=== PATIENT | male | born 1935 | race Caucasian/White ===

== ENCOUNTER 2017-10-22 16:26 | Emergency (ER) | payer OTHER, MEDICARE ==
[~2017-10-22] VITALS: Ht 172.7 cm; Wt 72.6 kg
[~2017-10-22 16:26] MED LIST: FELO2.5T PO; FISH1000 PO; GABA300 PO; GLUC500C56 PO; HYDR-2768 PO; PRED10 PO; QUEN12.5 PO; TIMO0.5S6 OU; ZOCO80TA PO; cinnamon PO; hydrocodone PO; stool softner PO
[2017-10-22 16:30] VITALS: BP 194/85; PULSE 73; RESP 16; TEMP 98; O2SAT 99
[2017-10-22 16:46] VITALS: BP 190/88; PULSE 65; RESP 18; O2SAT 98
--- NOTE | 2017-10-22 16:47 | PD ---
HPI Chief Complaint: Edema Time Seen by Provider: 16:34 Travel History International Travel<30 days: No Contact w/Intl Traveler<30days: No Traveled to known affect area: No History of Present Illness HPI PATIENT STATES THAT AFTER WORKING AROUND THE [employer], ONCE HE GOT OFF THE BOAT AND TRIED TO GET INTO HIS CAR, HE NOTICED A LUMP ON HIS LEFT CALF AREA. PATIENT IS ON PLAVIX BUT IS HERE BECAUSE HE'S CONCERNED IT MIGHT BE A BLOOD CLOT. PCP SAUL BRADFORD ALL:NKDA PMHX:HIGH CHOL, HTN, CVA, PFSH Past Medical History Hx Anticoagulant Therapy: Yes (PLAVIX) Blood Disorders: No Cancer: No Cardiovascular Problems: Yes High Cholesterol: Yes Cerebrovascular Accident: Yes Endocrine: No Glaucoma: Yes (melly) Genitourinary: No Hypertension: Yes Immune Disorder: No Musculoskeletal: Yes Neurologic: No Psychiatric: No Reproductive: No Respiratory: No Past Surgical History Abdominal Surgery: Yes (spleenectomy) Body Medical Devices: titanium plate in the neck Eye Surgery: Yes (melly cataract removal) Social History Alcohol Use: Yes (2 glasses of wine per day) Tobacco Use: No Substance Use: No Allergies-Medications (Allergen,Severity, Reaction): Coded Allergies: No Known Allergies (Unverified Adverse Reaction, Unknown, 10/22/17) Reported Meds & Prescriptions Reported Meds & Active Scripts Active Reported Vitamin D3 (Cholecalciferol) 5,000 Unit Cap 5,000 Units PO DAILY Vitamin E (Vitamin E (Dl,Tocopheryl Acet)) 100 Unit Capsule 1 Tab PO DAILY Plavix (Clopidogrel Bisulfate) 75 Mg Tab 75 Mg PO DAILY Tamsulosin (Tamsulosin HCl) 0.4 Mg Cap 0.4 Mg PO HS Pravastatin 80 Mg Tab 80 Mg PO DAILY Amlodipine (Amlodipine Besylate) 2.5 Mg Tab 2.5 Mg PO DAILY Combigan Opth Drops (Brimonidine-Timolol Opth Drops) 0.2-0.5% Soln 1 Drop EACH EYE Q12HR Latanoprost Opth Drops (Latanoprost) 0.005% Drops 1 Drop EACH EYE HS Refrigerate until opened. Review of Systems Except as stated in HPI: all other systems reviewed are Neg General / Constitutional: No: Fever Eyes: No: Visual changes HENT: No: Headaches Cardiovascular: No: Chest Pain or Discomfort Respiratory: No: Shortness of Breath Gastrointestinal: No: Abdominal Pain Genitourinary: No: Dysuria Musculoskeletal: No: Pain Skin: Positive Lumps Neurologic: No: Weakness Psychiatric: No: Depression Endocrine: No: Polydipsia Hematologic/Lymphatic: No: Easy Bruising Physical Exam Narrative GENERAL: SKIN: Warm and dry. HEAD: Atraumatic. Normocephalic. EYES: Pupils equal and round. No scleral icterus. No injection or drainage. ENT: No nasal bleeding or discharge. Mucous membranes pink and moist. NECK: Trachea midline. No JVD. CARDIOVASCULAR: Regular rate and rhythm. RESPIRATORY: No accessory muscle use. Clear to auscultation. Breath sounds equal bilaterally. GASTROINTESTINAL: Abdomen soft, non-tender, nondistended. Hepatic and splenic margins not palpable. MUSCULOSKELETAL: Extremities without clubbing, cyanosis, or edema. No obvious deformities. LEFT CALF PROXIMALLY ALONG MEDIAL HEAD OF GASTROCNEMIUS HE FOUND A LUMP, ABOUT 6CM, FIRM, WITH ECHYMOTIC SKIN CHANGES OVER IT, NO WARMTH/ERYTHEMA/ CELLULITIS NEUROLOGICAL: Awake and alert. No obvious cranial nerve deficits. Motor grossly within normal limits. Five out of 5 muscle strength in the arms and legs. Normal speech. PSYCHIATRIC: Appropriate mood and affect; insight and judgment normal. Data Data Last Documented VS Vital Signs Date Time Temp Pulse Resp B/P (MAP) Pulse Ox O2 Delivery O2 Flow Rate FiO2 10/22/17 18:30 63 18 187/89 (121) 96 Room Air 10/22/17 16:30 98.0 Orders Orders Us Leg Venous Doppler (10/22/17 16:39) Acetamin-Hydrocod 325-10 Mg ([place] 10-32 (10/22/17 17:15) MDM Medical Decision Making Medical Screen Exam Complete: Yes Emergency Medical Condition: Yes Medical Record Reviewed: Yes Differential Diagnosis HEMATOMA V ABSCESS V DVT Narrative Course UPON EXAMINATION NO CELLULITIC CHANGES SO NOT LYMPHANGITIS/ABSCESS/CELLULITIS, ULTRAS DID NOT SHOW DVT, BUT DID CONFIRM WHAT APPEARS TO BE A SUPERFICIAL HEMATOMA, ADVISED PATIENT TO PLACE PRESSURE DRESSING ON HEMATOMA Diagnosis Primary Impression: Leg hematoma Qualified Codes: S80.12XA - Contusion of left lower leg, initial encounter Patient Instructions: General Instructions, Hematoma (ED) Disposition: 01 DISCHARGE HOME Condition: Stable Sal Rai MD Oct 22, 2017 16:47
[2017-10-22] MEDS ORDERED: COMB0.2S EACH EYE (16:54)
[2017-10-22] MEDS ORDERED: TAMS0.4C4 PO (16:54)
[2017-10-22] MEDS ORDERED: PLAV75TA29 PO (16:54)
[2017-10-22] MEDS ORDERED: AMLO2.5T PO (16:54)
[2017-10-22] MEDS ORDERED: PRAV80TA2 PO (16:54)
[2017-10-22] MEDS ORDERED: LATA0.002 EACH EYE (16:54)
[2017-10-22] MEDS ORDERED: VITA100C4 PO (16:54)
[2017-10-22] MEDS ORDERED: CHOL5000 PO (16:54)
[2017-10-22] MEDS ORDERED: ACETAMINOPHEN/HYDROcodone 325 MG/10 MG TAB PO ONE (17:15)
[2017-10-22 18:30] VITALS: BP 187/89; PULSE 63; RESP 18; O2SAT 96
--- NOTE | 2017-10-22 18:33 | RADRPT ---
EXAM DATE/TIME: 10/22/2017 18:07 [facility] COMPARISON: No previous studies available for comparison. EXTERNAL COMPARISON : [facility], US LEG VENOUS DOPPLER BILATERAL, July 22, 2017 INDICATIONS : Left leg pain and swelling. MEDICAL HISTORY : Stroke. Hypercholesterolemia. Hypertension. Hearing loss. Glaucoma. Anticoagulant therapy, plavix. Blood transfusion. SURGICAL HISTORY : Splenectomy. Bilateral cataract removal. Anterior cervical discectomy. ENCOUNTER: Initial ACUITY: 1 day PAIN SCORE: 5/10 LOCATION: Left leg. TECHNIQUE: Venous ultrasound of the leg was performed from the inguinal ligament to the proximal calf. Real-raulito e, color Doppler and spectral tracing, compression and augmentation techniques were used. FINDINGS: There is normal compressibility of the deep venous system from the inguinal region to the proximal ca lf. No echogenic clot is seen in the lumen of the common femoral, femoral, popliteal, and posterior tibial veins. There is a normal response of the venous system to proximal and distal augmentation an d respiration. There is a Ro's cyst in the popliteal fossa measuring 4.1 x 2.4 cm. In the left medial calf there is a complex area measuring 6.0 x 4.3 x 2.6 cm. This area is avascular. This is most likely a hematoma since this patient is on Plavix. CONCLUSION: 1. No evidence of DVT. 2. Ro's cyst measuring 4.1 cm. 3. 6 cm probable hematoma in the left medial calf. Jorge Bledsoe MD on October 22, 2017 at 18:28 Board Certified Radiologist. This report was verified electronically.
[2017-10-22] MEDS ORDERED: CODE30TA2 PO (18:39)
[2017-10-22 19:03] VITALS: BP 181/86
== END 2017-10-22 19:06 | disposition home or self-care (01) ==
LOC: PHED 16:26
DX: R22.42 Localized swelling, mass and lump, left lower limb (principal); S80.12XA Contusion of left lower leg, initial encounter; I10 Essential (primary) hypertension; E78.00 Pure hypercholesterolemia, unspecified; X58.XXXA Exposure to other specified factors, initial encounter; Z79.01 Long term (current) use of anticoagulants
CPT/HCPCS: 93971; 99284